=== PATIENT | female | born 1985 | race Caucasian/White ===

== ENCOUNTER 2021-05-19 19:16 | Emergency (ER) | payer OTHER ==
[2021-05-19] MEDS ORDERED: Boostrix 0.5 ML (Tdap) VIAL ONE (19:48)
== END 2021-05-19 20:38 | disposition home or self-care (01) ==
LOC: ERS 19:16
DX: S21.252A Open bite of left back wall of thorax without penetration into thoracic cavity, initial encounter (principal); B37.3 Candidiasis of vulva and vagina; J45.909 Unspecified asthma, uncomplicated; Z23 Encounter for immunization; W55.81XA Bitten by other mammals, initial encounter; Z79.899 Other long term (current) drug therapy
CPT/HCPCS: 90471; 90715